=== PATIENT | female | born 1990 | race Caucasian/White ===

== ENCOUNTER 2016-08-21 09:39 | Inpatient (IN) | payer OTHER ==
[~2016-08-21] VITALS: Ht 170.2 cm; Wt 85.0 kg
[2016-08-21] MEDS ORDERED: LACTATED RINGER'S 1000 ML IV STA (10:55)
[2016-08-21] MEDS ORDERED: LR 1,000 ML IV SCH (10:55)
[2016-08-21 11:42] LABS: MEAN CORPUSCULAR HEMOGLOBIN 29.4 pg (27.0-33.0); MEAN CORPUSCULAR HGB CONC 33.3 g/dl (32.0-36.5); MEAN CORPUSCULAR VOLUME 88.2 fl (80.0-96.0); RED CELL DISTRIBUTION WIDTH 13.6 % (11.5-14.5); WHITE BLOOD COUNT 12.7 K/mm3 (4.0-10.0)
[2016-08-21] MEDS ORDERED: ONDANSETRON 4MG/2ML VIAL (J2405) As Ordered ONE (12:12)
[2016-08-21] MEDS ORDERED: ONDANSETRON 4MG/2ML VIAL (J2405) IV ONE (12:30)
[2016-08-21] MEDS ORDERED: FENTANYL 2MCG/ML ROPIVACAINE 0.2% NACL 250 ML CADD As Ordered ONE (12:31)
[2016-08-21] MEDS ORDERED: PRENTAB9 PO (13:52)
[2016-08-21] MEDS ORDERED: PROZ20CA11 PO (13:52)
[2016-08-21] MEDS ORDERED: ZANT1TAB PO (13:52)
[2016-08-21] MEDS ORDERED: B6 N1TAB PO (13:52)
[2016-08-21] MEDS ORDERED: OXYTOCIN 30 UNITS IN 0.9% NaCl 500ML IV BAG (J2590) As Ordered ONE (15:53)
[2016-08-21 16:24] LABS: CORD GAS ABE A -2.7; CORD GAS ABE V -1.7; CORD GAS HCO3 A 20.4 MEQ/L; CORD GAS HCO3 V 21.5 MEQ/L; CORD GAS O2 SAT A 84.8 %; CORD GAS O2 SAT V 85.1 %; CORD GAS PCO2 A 30.8 mmHg; CORD GAS PCO2 V 32.6 mmHg; CORD GAS PH A 7.438 UNITS; CORD GAS PH V 7.438 UNITS; CORD GAS PO2 A 38.7 mmHg; CORD GAS PO2 V 38.1 mmHg; CORD GAS SBC V 22.8 MEQ/L; CORD GAS TCO2 A 21.3 MEQ/L; CORD GAS TCO2 V 22.5 MEQ/L
[2016-08-21] MEDS ORDERED: OXYTOCIN DRIP 30 UNITS in APPROPRIATE DILUENT 1 EA IV SCH (16:58)
[2016-08-21] MEDS ORDERED: ANUSOL HC CREAM 30GM TOP PRN (17:00)
[2016-08-21] MEDS ORDERED: OXYTOCIN INJ 10 UNITS/ML VIAL (J2590) IV ONE (17:00)
[2016-08-21] MEDS ORDERED: MOM 30ML SUSPENSION UDC PO PRN (17:00)
[2016-08-21] MEDS ORDERED: DOCUSATE SODIUM 100 MG CAP PO PRN (17:00)
[2016-08-21] MEDS ORDERED: METHYLERGONOVINE MALEATE 0.2 MG TAB PO PRN (17:00)
[2016-08-21] MEDS ORDERED: DIBUCAINE 1% OINTMENT 30GM TOP PRN (17:00)
[2016-08-21] MEDS ORDERED: MEASLES,MUMPS,RUBELLA VACCINE INJ (MMR-II) (90707) SC SCH (17:00)
[2016-08-21] MEDS ORDERED: RHOGAM 300 MCG (1500 IU) INJ (J2790) IM SCH (17:00)
--- NOTE | 2016-08-21 17:00 | HPE ---
DATE OF ADMISSION: 08/21/2016 HISTORY: 26-year-old 4, para 2, LMP 11/21/2015, EDC 08/27/2016, at 39+ weeks of gestation in active labor, 4 cm, bulging membranes, -2 station, 80% effaced. GBS negative. Category 1 strip. She has issues with anxiety and depression and was on Prozac and B6. PAST HISTORY: In April 2011, 40 weeks induction of labor, female, spontaneous vaginal delivery, 6 pounds 8 ounces. October 2013, 40 weeks, spontaneous vaginal delivery, female, 6 pounds 15 ounces, and she had a spontaneous in May 2015. LABORATORY DATA: A+, HIV negative, rubella immune, RPR negative. Varicella immune. Pap normal. Gonorrhea and chlamydia negative. 1-hour glucose 84. GBS negative. Blood pressure is 125/75, respirations are 20, pulse is 108, temperature 98.3. Urine is 1.027, pH of 7, and +1 ketones. She appears to be distressed. Symphysis fundus height is 39. Four quadrant bowel sounds are noted. Vertex OA, nontender uterus, 80% effaced, 4 cm, anterior. Plan of management is to hydrate her because of her ketones, anticipate epidural on an as needed basis, and anticipate spontaneous vaginal delivery. The rest of her examination, she is normocephalic, atraumatic. Neck full range of motion. Pupils equal and reactive to light. Distal pulses symmetric. No evidence of DVT, PE or superficial phlebitis. No wheezes or rhonchi. Chest is clear to the bases. Uterus is nontender. Four quadrant bowel sounds. Appropriate symphysis fundus height. No rashes or lesions or pruritus, arthralgia, myalgia. No complaint of cough, wheeze, shortness of breath or dyspnea on exertion. No chest pain. She is not bleeding. Neurologically complete. No incontinency, urgency, or frequency. No nausea, vomiting, diarrhea or constipation. No diabetic issues. 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 PAST MEDICAL HISTORY: Unremarkable. SURGICAL HISTORY: Dilatation and curettage (D and C). FAMILY HISTORY: Noncontributory. She does not smoke or drink or abuse drugs. She is to a soldier and there is no domestic violence. In summary we have a term gestation in active labor. We anticipate a speedy delivery.
[2016-08-21] MEDS ORDERED: METHYLERGONOVINE MALEATE 0.2 MG/ML VIAL (J2210) As Ordered ONE (17:07)
--- NOTE | 2016-08-21 17:07 | DN ---
DATE: 08/21/2016 This lady was complete and fully dilated, called for delivery. She had an artificial rupture membranes of clear liqui, had full dilatation over intact perineum, delivered a live female infant. Cord around the neck once tight and around the body tight, 7 pounds, 13 ounces, 3530 grams. scores of 9 and 9 at one and five minutes respectfully. Arterial venous pH was performed. Placenta delivered spontaneously thereafter, three-vessel, the cord, membranes and tissues intact. Examination of the placenta was complete. Examination of the vagina, the rectum, the cervix, and the lateral galloway was complete as well. The uterus contracted well down on Pitocin. The patient and baby tolerating the procedure well.
[2016-08-21] MEDS ORDERED: METHYLERGONOVINE MALEATE 0.2 MG/ML VIAL (J2210) IM ONE (17:15)
[2016-08-21 18:48] VITALS: BP 135/79
[2016-08-21] MEDS ORDERED: OXYTOCIN INJ 10 UNITS/ML VIAL (J2590) As Ordered ONE (18:50)
[2016-08-21] MEDS: IBUPROFEN 800 MG TAB PO PRN (18:55)
[2016-08-21] MEDS: ACETAMINOPHEN 500 MG TAB PO PRN (23:03)
[2016-08-21 23:15] VITALS: BP 126/79
[2016-08-22 06:03] VITALS: BP 131/78
[2016-08-22 06:40] LABS: MEAN CORPUSCULAR HEMOGLOBIN 29.5 pg (27.0-33.0); MEAN CORPUSCULAR HGB CONC 33.2 g/dl (32.0-36.5); MEAN CORPUSCULAR VOLUME 88.8 fl (80.0-96.0); WHITE BLOOD COUNT 11.6 K/mm3 (4.0-10.0)
[2016-08-22] MEDS: PRENATAL VITAMIN TAB PO SCH (07:46)
[2016-08-22] MEDS: IBUPROFEN 800 MG TAB PO PRN ×2 (07:47→17:37)
--- NOTE | 2016-08-22 11:36 | IPN ---
DATE: 08/22/2016 26-year-old 4, para 3, admitted in spontaneous labor, had an epidural in place, delivered a live female , 7 pounds 13 ounces, 3530 grams, scores of 9 and 9 at 1 and 5 minutes, respectively. Cord was around the neck tight times one and around the body times one. Arterial pH 7.43, base excess -2.7, venous pH 7.43, base excess -1.7. Admitting hemoglobin 11.4, hematocrit 34.1, platelets were 163. day #1 hemoglobin 11.0, hematocrit 33.0 and platelets are 125. Her vital signs today, her blood pressure is 131/78, respirations are 18, pulse 70, temperature 96.9. She is sitting up in bed, actively attempting to breastfeed. She is voiding. She is passing gas. She does not feel lightheaded. Her chest is clear bilaterally bases. Heart sounds are normal. No evidence of DVT, PE or superficial phlebitis. Abdomen is soft. Uterus is 2 below. Lochia is moderate. Four quadrant bowel sounds are noted. No evidence of incontinence, urgency, or frequency. No nausea, vomiting, diarrhea or constipation. We have a term gestation delivered a live female , possible discharge tomorrow morning. She does suffer from depression, anxiety and was on Prozac but did not request Prozac at the present time.
[2016-08-22] MEDS: ACETAMINOPHEN 500 MG TAB PO PRN ×2 (11:51→22:43)
[2016-08-22 18:00] VITALS: BP 120/72
[2016-08-23 05:48] VITALS: BP 112/65
[2016-08-23] MEDS: PRENATAL VITAMIN TAB PO SCH (07:39)
[2016-08-23] MEDS: IBUPROFEN 800 MG TAB PO PRN (07:53)
[2016-08-23] MEDS ORDERED: ACET50TA PO (07:54)
[2016-08-23] MEDS ORDERED: IBUP-1114 PO (07:54)
[2016-08-23] MEDS ORDERED: COLA100C PO (07:54)
== END 2016-08-23 10:10 | disposition home or self-care (01) | DRG 775 ==
LOC: M LDO 09:39 → M LDI 10:49 → M OBS 18:37
PROVIDERS: ADMIT Obstetrics & Gynecology; ATTEND Obstetrics & Gynecology
PROC: 10E0XZZ Delivery of Products of Conception, External Approach (ICD-10-PCS; principal; 2016-08-21)
PROC: 10907ZC Drainage of Amniotic Fluid, Therapeutic from Products of Conception, Via Natural or Artificial Opening (ICD-10-PCS; 2016-08-21)
DX: O99.344 Other mental disorders complicating childbirth (principal); F32.9 Major depressive disorder, single episode, unspecified; F41.9 Anxiety disorder, unspecified; Z3A.39 39 weeks gestation of pregnancy; O69.1XX0 Labor and delivery complicated by cord around neck, with compression, not applicable or unspecified; O69.2XX0 Labor and delivery complicated by other cord entanglement, with compression, not applicable or unspecified; Z37.0 Single live birth

== ENCOUNTER 2018-04-16 08:02 | Day surgery (SDC) | payer OTHER ==
[~2018-04-16 08:02] MED LIST: NS 1,000 ML IV; SODIUM CHLORIDE 0.9% 1000ML IV
[2018-04-16 08:41] LABS: HEMATOCRIT 39.8 % (36.0-47.0); HEMOGLOBIN 13.3 g/dl (12.0-15.5); MEAN CORPUSCULAR HEMOGLOBIN 30.4 pg (27.0-33.0); MEAN CORPUSCULAR HGB CONC 33.4 g/dl (32.0-36.5); MEAN CORPUSCULAR VOLUME 90.9 fl (80.0-96.0); PLATELET COUNT, AUTOMATED 237 10^3/uL (150-450); RED BLOOD COUNT 4.38 10^6/uL (4.00-5.40); RED CELL DISTRIBUTION WIDTH 12.7 % (11.5-14.5)
[2018-04-16] MEDS: LR 1,000 ML IV (08:45)
[2018-04-16] MEDS ORDERED: MIDAZOLAM INJ 2 MG/2 ML VIAL (J2250) As Ordered (08:53)
[2018-04-16] MEDS ORDERED: PROPOFOL 200 MG/20 ML VIAL As Ordered (08:53)
[2018-04-16] MEDS ORDERED: fentaNYL 250 MCG/5 ML INJECTION (J3010) As Ordered (08:53)
[2018-04-16] MEDS ORDERED: ROCURONIUM BROMIDE 50 MG/5 ML VIAL As Ordered (08:54)
[2018-04-16] MEDS ORDERED: dexameTHASONE 4 MG/ML 1ML VIAL (J1100) As Ordered (08:54)
[2018-04-16] MEDS ORDERED: ONDANSETRON 4MG/2ML VIAL (J2405) As Ordered (08:54)
[2018-04-16] MEDS ORDERED: LIDOCAINE 2% INJ 100 MG/5 ML SDV (FOR ANES.) As Ordered (08:54)
[2018-04-16] MEDS ORDERED: KETOROLAC 60 MG/2 ML VIAL (J1885) As Ordered (08:54)
[2018-04-16] MEDS: METHYLENE BLUE 0.5% (5MG/ML) 10 ML AMP (PROVAYBLUE)(Q9968 PER 1MG) As Ordered (09:05)
[2018-04-16] MEDS: ACETAMINOPHEN 650 MG SUPP As Ordered (09:05)
[2018-04-16] MEDS: SCOPOLAMINE 1MG TRANSDERMAL PATCH TOP (09:15)
[2018-04-16 09:19] LABS: ANION GAP 7 MEQ/L (8-16); BLOOD UREA NITROGEN 12 MG/DL (7-18); CALCIUM LEVEL 8.8 MG/DL (8.5-10.1); CARBON DIOXIDE LEVEL 26 MEQ/L (21-32); CHLORIDE LEVEL 109 MEQ/L (98-107); CREATININE FOR GFR 0.81 MG/DL (0.55-1.30); GLOMERULAR FILTRATION RATE > 60.0 (>60); GLUCOSE, FASTING 80 MG/DL (70-100); HCG, SERUM QUANTITATIVE < 1.0 MIU/ML; POTASSIUM SERUM 4.5 MEQ/L (3.5-5.1); SODIUM LEVEL 142 MEQ/L (136-145)
[2018-04-16] MEDS: ceFAZolin SOD 1 GM in D5W MINI-BAG PLUS 50 ML IV (09:52)
[2018-04-16] MEDS: ACETAMINOPHEN 650 MG SUPP PR (09:55)
[2018-04-16] MEDS: BUPIVACAINE HCL 0.5% 10 ML VIAL As Ordered (09:59)
[2018-04-16] MEDS ORDERED: GLYCOPYRROLATE INJ 0.2 MG/ML 2 ML VIAL As Ordered (10:07)
[2018-04-16] MEDS ORDERED: NEOSTIGMINE 10 MG/10 ML VIAL (J2710) As Ordered (10:07)
[2018-04-16] MEDS ORDERED: HYDROmorphone HCL 2 MG/ML 1ML VIAL (J1170) As Ordered (10:08)
[2018-04-16] MEDS ORDERED: PERCOCET 5MG/325MG TAB PO (11:15)
[2018-04-16] MEDS ORDERED: fentaNYL 100 MCG/2 ML INJECTION (J3010) IV (11:15)
[2018-04-16] MEDS ORDERED: METOCLOPRAMIDE INJ 10MG/2ML VIAL (J2765) IV (11:15)
[2018-04-16] MEDS ORDERED: LR 1,000 ML IV (11:15)
[2018-04-16] MEDS ORDERED: ONDANSETRON 4MG/2ML VIAL (J2405) IV (11:15)
[2018-04-16] MEDS ORDERED: KETOROLAC 30 MG/ML VIAL (J1885) IV (15:00)
== END 2018-04-16 12:28 | disposition home or self-care (01) ==
LOC: M SDC 08:02
DX: R10.2 Pelvic and perineal pain (principal); N92.6 Irregular menstruation, unspecified; Z30.430 Encounter for insertion of intrauterine contraceptive device; F32.9 Major depressive disorder, single episode, unspecified; Z79.899 Other long term (current) drug therapy; F41.9 Anxiety disorder, unspecified
CPT/HCPCS: 49320

== ENCOUNTER 2018-08-26 14:11 | Emergency (ER) | payer OTHER ==
[~2018-08-26] VITALS: Ht 170.2 cm; Wt 93.2 kg
[~2018-08-26 14:11] MED LIST changes: +B6 N1TAB PO; +COLA100C5 PO; +IBUP-1114 PO; +MAPA500T2 PO; -NS 1,000 ML IV; +PRENTAB9 PO; +PROZ10CA7 PO; +PROZ20CA11 PO; -SODIUM CHLORIDE 0.9% 1000ML IV; +ZANT150T15 PO
[2018-08-26 15:01] LABS: APPEARANCE, URINE CLEAR (CLEAR); BACTERIA, URINE AUTO NEGATIVE (NEGATIVE); BILIRUBIN, URINE AUTO NEGATIVE (NEGATIVE); BLOOD, URINE BLOOD NEGATIVE (NEGATIVE); COLOR, URINE STRAW (YELLOW); GLUCOSE, URINE (UA) AUTO NEGATIVE (NEGATIVE); KETONE, URINE AUTO NEGATIVE (NEGATIVE); LEUKOCYTE ESTERASE, URINE AUTO NEGATIVE (NEGATIVE); NITRITE, URINE AUTO NEGATIVE (NEGATIVE); PROTEIN, URINE AUTO NEGATIVE (NEGATIVE); RBC, URINE AUTO 1 /HPF (0-3); SPECIFIC GRAVITY URINE AUTO 1.006 (1.002-1.035); SQUAMOUS EPITHELIAL CELL UR AU 0 /HPF (0-6); UROBILINOGEN, URINE AUTO 0.2 mg/dL (0.0-2.0); WBC, URINE AUTO 0 /HPF (0-3)
[2018-08-26] MEDS ORDERED: ROBA500T PO (16:23)
[2018-08-26] MEDS ORDERED: IBUP-1022 PO (16:23)
[2018-08-26 16:34] VITALS: BP 111/75
== END 2018-08-26 16:36 | disposition home or self-care (01) ==
LOC: M ED 14:11
DX: M62.830 Muscle spasm of back (principal)